=== PATIENT | female | born 1940 | race African-American/Black ===

== ENCOUNTER 2018-12-21 21:50 | Inpatient (IN) | payer MEDICARE ==
[~2018-12-21] VITALS: Ht 160 cm; Wt 39.9 kg
--- OUTSIDE RECORDS SUMMARY | 2018-12-21 21:53 | XMS REPORT | Clinical Summary ---
Author Author [facility] Organization [facility] Address Unknown Phone Unavailable Care Team Providers Care Professor Of Graphic Design Name Role Phone Elizabeth Gates MD PCP Allergies No Known Allergies Medications End Date Status Medication Sig Dispensed Refills Start Date Active glimepiride (AMARYL) 1 MG Take 1 mg by 0 tablet mouth daily before breakfast. Active metoprolol succinate XL Take 50 mg by 0 (TOPROL-XL) 50 mg 24 hr mouth daily. tablet Active pantoprazole (PROTONIX) Take 40 mg by 0 40 MG EC tablet mouth daily. Active metFORMIN (GLUCOPHAGE) Take 750 mg 0 1,000 mg tablet by mouth 2 (two) times a day with meals. Active atorvastatin (LIPITOR) 40 Take 40 mg by 0 MG tablet mouth daily. Active clonIDINE (CATAPRES) 0.1 Take 0.1 mg 0 MG tablet by mouth 2 (two) times a day. 03/09/2018 famotidine (PEPCID) 20 MG Take 1 tablet 60 tablet 0 tablet (20 mg total) 8 by mouth 2 (two) times a day for 30 days. Active Problems Not on file Encounters Care Team Description Date Type Specialty Stacia Jordan MD Pain of upper abdomen (Primary Dx); Esophagitis; Abnormal CT of the abdomen 02/07/2018 Emergency Emergency Medicine after 12/20/2017 Social History Date Tobacco Use Types Packs/Day Years Used Never Smoker Smokeless Tobacco: Never Used Drinks/Week oz/Week Comments Alcohol Use No Sex Assigned at Date Recorded Not on file Industry Job Start Date Occupation Not on file Not on file Not on file Travel End Travel History Travel Start No recent travel history available. Last Filed Vital Signs Reading Time Taken Comments Vital Sign 182/83 02/07/2018 7:57 PM CDT Blood Pressure 84 02/07/2018 7:57 PM CDT Pulse 36.4 C (97.6 F) 02/07/2018 7:57 PM CDT Temperature 18 02/07/2018 7:57 PM CDT Respiratory Rate 99% 02/07/2018 7:57 PM CDT Oxygen Saturation - - Inhaled Oxygen Concentration 44 kg (97 lb) 02/07/2018 3:20 PM CDT Weight 160 cm (5' 3") 02/07/2018 3:20 PM CDT Height 17.18 02/07/2018 3:20 PM CDT Body Mass Index Plan of Treatment Health Maintenance Due Date Last Done Comments COLONOSCOPY SCREENING 1992 SHINGLES VACCINES (#1) 1992 65+ PNEUMOCOCCAL VACCINE 06/27/2007 (1 of 2 - PCV13) INFLUENZA VACCINE 11/18/2018 Procedures Comments Procedure Name Priority Date/Time Associated Diagnosis POC GLUCOSE Routine 02/07/2018 7:[address] ABDOMEN PELVIS W STAT 02/07/2018 CONTRAST 7:06 PM CDT URINALYSIS STAT 02/07/2018 4:18 PM CDT XR ABDOMEN ACUTE INC STAT 02/07/2018 CHEST 4:14 PM CDT MANUAL DIFFERENTIAL STAT 02/07/2018 4:00 PM CDT ESTIMATED GFR STAT 02/07/2018 4:00 PM CDT AMYLASE LEVEL STAT 02/07/2018 4:00 PM CDT COMPREHENSIVE METABOLIC STAT 02/07/2018 PANEL 4:00 PM CDT CBC WITH PLATELET AND STAT 02/07/2018 DIFFERENTIAL 4:00 PM CDT ECG 12-LEAD Routine 02/07/2018 3:24 PM CDT after 12/20/2017 Results * POC glucose (02/07/2018 7:40 PM CDT) POC glucose 267 (H) 65 - 99 mg/dL DEPARTMENT Comment: OF PATHOLOGY Administered Insulin AND GENOMIC [facility] Notified MEDICINE, Meter ID: [id number] [place] Pressure Testing Technician: [facility] Specimen Performing Organization Address City/State/Zipcode Phone Number [place] [phone] [place] [address] PATHOLOGY AND GENOMIC MEDICINE, [place] [facility] * CT Abdomen Pelvis W Contrast (02/07/2018 7:06 PM CDT) Specimen Narrative Performed At EXAMINATION:CT ABDOMEN PELVIS W CONTRAST [facility] CLINICAL HISTORY:Weight lossunintendednon-localized abd pain TECHNIQUE: Multiple axial images of the abdomen and pelvis were obtained following intravenous administration of iodinated contrast. Sagittal and coronal computerized reformatted images were also obtained. Scan was performed using radiation dose reduction techniques. COMPARISON:None FINDINGS: There is retained or refluxed contrast in the distal esophagus. Esophagus is mildly thickened. No evidence of bowel obstruction or inflammation. Moderate stool is seen throughout the colon. No suspicious lesions in the solid organs. Punctate hypodensity in the right kidney is likely cyst but too small to characterize. No adrenal mass. Gallbladder is nondistended. No biliary dilatation. Pancreas is moderately atrophic. Endometrium appears diffusely abnormally thickened measuring up to 2.5 cm. No gross adnexal mass. No lymphadenopathy. Bladder is moderately distended. Old healed right rib fractures are seen. Diffuse vascular calcifications. Aorta is nonaneurysmal. IMPRESSION: No evidence of acute process. Abnormally thickened appearance of the endometrium should be correlated with pelvic ultrasound or MRI for possible neoplasm. [facility]-[id number] Procedure Note Interface, Radiology Results Incoming - 02/07/2018 7:22 PM CDT EXAMINATION: CT ABDOMEN PELVIS W CONTRAST CLINICAL HISTORY: Weight loss unintended non-localized abd pain TECHNIQUE: Multiple axial images of the abdomen and pelvis were obtained following intravenous administration of iodinated contrast. Sagittal and coronal computerized reformatted images were also obtained. Scan was performed using radiation dose reduction techniques. COMPARISON: None FINDINGS: There is retained or refluxed contrast in the distal esophagus. Esophagus is mildly thickened. No evidence of bowel obstruction or inflammation. Moderate stool is seen throughout the colon. No suspicious lesions in the solid organs. Punctate hypodensity in the right kidney is likely cyst but too small to characterize. No adrenal mass. Gallbladder is nondistended. No biliary dilatation. Pancreas is moderately atrophic. Endometrium appears diffusely abnormally thickened measuring up to 2.5 cm. No gross adnexal mass. No lymphadenopathy. Bladder is moderately distended. Old healed right rib fractures are seen. Diffuse vascular calcifications. Aorta is nonaneurysmal. IMPRESSION: No evidence of acute process. Abnormally thickened appearance of the endometrium should be correlated with pelvic ultrasound or MRI for possible neoplasm. [facility]-[id number] Performing Organization Address City/State/Zipcode Phone Number [facility] [address] [place] [address] * Urinalysis (02/07/2018 4:18 PM CDT) Glucose, UA 3+ (A) Negative [facility] Bilirubin, UA Negative Negative [facility] Ketones, UA Negative Negative [facility] Specific =<1.005 1.001 - 1.035 DEPARTMENT gravity, UA [facility] Blood, UA Trace (A) Negative [facility] pH, UA 6.0 5.0 - 8.5 [facility] Protein, UA Negative Negative [facility] Urobilinogen, <2.0 <2.0 DEPARTMENT UA [facility] Nitrite, UA Negative Negative [facility] Leukocyte Negative Negative DEPARTMENT esterase, UA [facility] Color, UA Yellow [facility] Appearance, UA Clear [facility] Specimen Urine Performing Organization Address City/[facility]/Zipcode Phone Number [facility] [address] [place] [address] [facility] * XR Abdomen Acute Inc Chest (02/07/2018 4:14 PM CDT) Specimen Narrative Performed At EXAMINATION:XR ABDOMEN ACUTE INC CHEST [facility] CLINICAL HISTORY:Abd painunspecified COMPARISON:Chest radiograph dated 06/03/2014 FINDINGS: Stool is seen throughout the colon, suggestive of mild constipation. There is no gastrointestinal distention to suggest obstruction. There is no free intraperitoneal air. There are no focal pathologic visceral calcifications. There is atherosclerotic calcification of the vasculature. There is demineralization and degenerative change of the visualized skeleton. There is no acute or suspicious osseous abnormality. The visualized lung bases appear grossly unremarkable. IMPRESSION: Moderate constipation without evidence of obstruction or free air. [facility]-[id number] Procedure Note Hm Interface, Radiology Results Incoming - 02/07/2018 4:35 PM CDT EXAMINATION: XR ABDOMEN ACUTE INC CHEST CLINICAL HISTORY: Abd pain unspecified COMPARISON: Chest radiograph dated 06/03/2014 FINDINGS: Stool is seen throughout the colon, suggestive of mild constipation. There is no gastrointestinal distention to suggest obstruction. There is no free intraperitoneal air. There are no focal pathologic visceral calcifications. There is atherosclerotic calcification of the vasculature. There is demineralization and degenerative change of the visualized skeleton. There is no acute or suspicious osseous abnormality. The visualized lung bases appear grossly unremarkable. IMPRESSION: Moderate constipation without evidence of obstruction or free air. [facility]-[id number] Performing Organization Address City/[facility]/Zipcode Phone Number [facility] [address] [place] [address] * Estimated GFR (02/07/2018 4:00 PM CDT) Estimated GFR 83 mL/min/1.73 m2 DEPARTMENT Comment: OF PATHOLOGY CatergoryUnitsInte AND GENOMIC rpretation MEDICINE, [address] >=90 Normal or high EMERGENCY CARE G2 CENTER 60-89Mildly decreased T0p58-67 Mildly to moderately decreased M3x39-77 Moderately to severely decreased G4 15-29Severely decreased G5 <15Kidney failure The eGFR was calculated using the Chronic Kidney Disease Epidemiology Collaboration (CKD-EPI) equation. Interpretation is based on recommendations of the National Kidney Foundation-Kidney Disease Outcomes Quality Initiative (NKF-KDOQI) published in 2014. Specimen Plasma specimen Performing Organization Address City/State/Zipcode Phone Number [facility] [address] [place] [address] PATHOLOGY AND GENOMIC MEDICINE, [facility] * Manual differential (02/07/2018 4:00 PM CDT) Manual PERFORMED [facility] DEPARTMENT differential OF PATHOLOGY AND GENOMIC MEDICINE Neutrophils 85.0 (H) 39.0 - 69.0 % [facility] DEPARTMENT OF PATHOLOGY AND GENOMIC MEDICINE Lymphocytes 12.0 (L) 25.0 - 45.0 % [facility] DEPARTMENT OF PATHOLOGY AND GENOMIC MEDICINE Monocytes 3.0 0.0 - 10.0 % [facility] DEPARTMENT OF PATHOLOGY AND GENOMIC MEDICINE Eosinophils 0.0 0.0 - 5.0 % [facility] DEPARTMENT OF PATHOLOGY AND GENOMIC MEDICINE Basophils 0.0 0.0 - 1.0 % [facility] DEPARTMENT OF PATHOLOGY AND GENOMIC MEDICINE Metamyelocytes 0 % [facility] DEPARTMENT OF PATHOLOGY AND GENOMIC MEDICINE Promyelocytes 0 % [facility] DEPARTMENT OF PATHOLOGY AND GENOMIC MEDICINE Platelet slide Increased (A) [facility] DEPARTMENT review OF PATHOLOGY AND GENOMIC MEDICINE Anisocytosis Moderate [facility] DEPARTMENT OF PATHOLOGY AND GENOMIC MEDICINE Polychromasia Moderate [facility] DEPARTMENT OF PATHOLOGY AND GENOMIC MEDICINE Schistocytes Occasional [facility] DEPARTMENT OF PATHOLOGY AND GENOMIC MEDICINE Spherocytes Occasional [facility] DEPARTMENT OF PATHOLOGY AND GENOMIC MEDICINE Ovalocytes Moderate [facility] DEPARTMENT OF PATHOLOGY AND GENOMIC MEDICINE Specimen Performing Organization Address City/State/Zipcode Phone Number [facility] DEPARTMENT [address] [address] PATHOLOGY AND GENOMIC MEDICINE * CBC with platelet and differential (02/07/2018 4:00 PM CDT) [facility] Signature WBC 12.90 (H) 4.50 - 11.00 k/uL [facility] RBC 3.83 (L) 4.20 - 5.50 m/uL [facility] HGB 10.7 (L) 12.0 - 16.0 g/dL [facility] HCT 31.3 (L) 37.0 - 47.0 % [facility] MCV 81.7 (L) 82.0 - 100.0 fL [facility] MCH 27.9 27.0 - 34.0 pg [facility] MCHC 34.2 31.0 - 37.0 g/dL [facility] RDW - SD 35.2 (L) 37.0 - 55.0 fL [facility] MPV 9.1 8.8 - 13.2 fL [facility] Platelet count 540 (H) 150 - 400 k/uL [facility] Neutrophils 85.0 (H) 39.0 - 69.0 % [facility] Lymphocytes 12.0 (L) 25.0 - 45.0 % [facility] Monocytes 3.0 0.0 - 10.0 % [facility] Eosinophils 0.0 0.0 - 5.0 % [facility] Basophils 0.0 0.0 - 1.0 % [facility] Specimen Blood Performing Organization Address City/[facility] [place] [address] [facility] * Amylase level (02/07/2018 4:00 PM CDT) Amylase 41 14 - 97 U/L [facility] Specimen Plasma specimen Performing Organization Address City/[facility] [place] [address] [facility] * Comprehensive metabolic panel (02/07/2018 4:00 PM CDT) Sodium 129 128 - 145 mEq/L [facility] Potassium 4.2 3.6 - 5.1 mEq/L [facility] CO2 30 18 - 33 mEq/L [facility] Chloride 93 (L) 98 - 108 mEq/L [facility] Glucose 359 (H) 73 - 118 mg/dL [facility] Calcium 9.0 8.0 - 10.3 mg/dL [facility] BUN 11 7 - 22 mg/dL [facility] Creatinine 0.8 0.5 - 0.9 mg/dL [facility] Alkaline 89 42 - 141 U/L DEPARTMENT phosphatase [facility] ALT 14 10 - 47 U/L [facility] AST 15 11 - 38 U/L [facility] Total bilirubin 0.8 0.2 - 1.6 mg/dL [facility] Albumin 3.9 3.3 - 5.5 g/dL [facility] Protein 7.4 6.4 - 8.1 g/dL [facility] Anion gap 6@ANIO (L) 7 - 15 mEq/L [facility] A/G ratio 1.1 0.7 - 3.8 [facility] Specimen Plasma specimen Performing Organization Address City/State/[facility] Cent[facility]ode Phone Number [address] [address] [facility] * ECG 12 lead (02/07/2018 3:24 PM CDT) [facility] Signature Ventricular 86 [facility] MUSE rate Atrial rate 86 [facility] MUSE ME interval 122 [facility] QRSD interval 132 [facility] QT interval 424 [facility] QTC interval 507 [facility] P axis 1 39 [facility] QRS axis 1 -6 [facility] T wave axis 177 [facility] MUSE EKG impression Normal sinus rhythm-Left [facility] MUSE bundle branch block-Abnormal ECG-In automated comparison with ECG of 03-JUN-2014 00:47,-T wave inversion now evident in Inferior leads- Specimen Performing Organization Address City/State/Zipcode Phone Number [facility] MUSE [address] [place] [address] after 12/20/2017 Insurance Type Payer Benefit Subscriber ID Effective Phone Address Plan / Dates Group Medicare MEDICARE MEDICARE xxxxxxxxxxx [id number] [place], PART A AND [place] Advance Directives For more information, please contact: [phone] Patient Rn Anesthetist Explanation Type Date Recorded Advance Directives, Living Will and Medical Power of Hydroelectric Station Operator
--- OUTSIDE RECORDS SUMMARY | 2018-12-21 21:53 | XMS REPORT | Summary of Care ---
Author Author [facility] Organization [facility] Address Unknown Phone Unavailable Encounter HQ Encntr_alias(FIN) [id number] Date(s): 06/03/18 - 07/02/18 [facility] [address] [place] [address]- [phone] Discharge Disposition: Home or Self Care Attending Physician: Bin Guevara DPM Vital Signs No data available for this section Problem List Condition Effective Dates Status Health Status Informant MRSA(Confirmed)1, 2 08/07/17 Active - MRSA - Wound/R Heel 2Problem added by Discern Expert. Allergies, Adverse Reactions, Alerts No data available for this section Medications No data available for this section Results No data available for this section Immunizations No data available for this section Procedures No data available for this section Social History No data available for this section Assessment and Plan No data available for this section
--- OUTSIDE RECORDS SUMMARY | 2018-12-21 21:53 | XMS REPORT | Summary of Care ---
Author Author [facility] Organization [facility] Address Unknown Phone Unavailable Encounter HQ Encntr_alias(FIN) [id number] Date(s): 10/06/18 - 11/04/18 [facility] [address] [place] [address]- Discharge Disposition: Home or Self Care Attending Physician: Bin Guevara DPM Vital Signs No data available for this section Problem List Condition Effective Dates Status Health Status Informant MRSA(Confirmed)1, 2 08/07/17 Active - MRSA - Wound/R Heel 2Problem added by Discern Expert. Allergies, Adverse Reactions, Alerts No data available for this section Medications No data available for this section Results Microbiology Reports TEST: Culture: Wound/Abscess w/Gram Stain STATUS: Auth (Verified) BODY SITE: Right Foot SOURCE: Wound, Non Surgical COLLECTED DATE/TIME: 10/06/18 1:30 PM FINAL REPORT Moderate Escherichia coli Many Gram Pos Rods Suggestive of Diphtheroids STAIN REPORT No Wbc'S Or Organisms Seen ORGANISM:Escherichia coli Immunizations No data available for this section Procedures No data available for this section Social History No data available for this section Assessment and Plan No data available for this section
--- OUTSIDE RECORDS SUMMARY | 2018-12-21 21:53 | XMS REPORT | Continuity of Care Document ---
Author Author [facility] Address Unknown Phone Unavailable Care Team Providers Care Netsuite Developer Name Role Phone [employer] Unavailable Unavailable Problems Problem Status Onset Date Classification Date Reported Comments Source WOUND Active 11/12/2018 [facility] Type 2 diabetes mellitus with diabetic polyneuropathy 03/31/2018 10/13/2018 [facility] Methicillin resistant Staphylococcus aureus (organism) Active 08/07/2017 Problem 11/06/2018 08/07/2017 - MRSA - Wound/R Heel Problem added by Discern Expert. [facility] Peripheral vascular disease, unspecified 10/13/2018 [facility] Non-pressure chronic ulcer of right heel and midfoot with fat layer exposed 10/13/2018 [facility] residential (current) use of oral hypoglycemic drugs 10/13/2018 [facility] UNSPECIFIED OPEN WOUND, RIGHT FOOT, SUBS Active [facility] PERIPHERAL VASCULAR DISEASE, UNSPECIFIED Active [facility] TYPE 2 DIABETES MELLITUS WITH DIABETIC P Active [facility] MUSCLE WEAKNESS (GENERALIZED) Active [facility] TYPE 2 DIABETES MELLITUS WITH FOOT ULCER Active [facility] NON-PRS CHR ULCER OF RIGHT HEEL AND MIDF Active [facility] NON-PRS CHR ULCER OF RIGHT HEEL AND MIDF Active [facility] NON-PRS CHR ULCER OF RIGHT HEEL AND MIDF Active [facility] Medications No Data Provided for This Section Allergies, Adverse Reactions, Alerts No Known Medication Allergies Immunizations No Data Provided for This Section Results Order Name Results Value Reference Range Date Interpretation Comments Source AMIKACIN:SUSC:PT:ISOLATE:ORDQN:SHWETA Gram Stain Report No Wbc'S Or Organisms Seen 10/06/2018 [facility] AMIKACIN:SUSC:PT:ISOLATE:ORDQN:SHWETA Culture: Wound/Abscess w/Gram Stain Moderate Escherichia coli Many Gram Pos Rods Suggestive of Diphtheroids 10/06/2018 [facility] AMIKACIN:SUSC:PT:ISOLATE:ORDQN:SHWETA Escherichia coli Escherichia coli 10/06/2018 [facility] TIGECYCLINE:SUSC:PT:ISOLATE:ORDQN:SHWETA Gram Stain Report No WBC's Seen Rare Gram Positive Cocci In Pairs 07/21/2018 [facility] TIGECYCLINE:SUSC:PT:ISOLATE:ORDQN:SHWETA Culture: Wound/Abscess w/Gram Stain Many Escherichia coli Many Gram Pos Rods Suggestive of Diphtheroids 07/21/2018 [facility] TIGECYCLINE:SUSC:PT:ISOLATE:ORDQN:SHWETA Escherichia coli Escherichia coli 07/21/2018 [facility] Gram Stain Report No Wbc'S Or Organisms Seen 02/24/2018 [facility] Culture: Wound/Abscess w/Gram Stain No Growth 02/24/2018 [facility] Pathology Reports No Data Provided for This Section Diagnostic Reports No Data Provided for This Section Consultation Notes No Data Provided for This Section Discharge Summaries No Data Provided for This Section History and Physicals No Data Provided for This Section Vital Signs No Data Provided for This Section Encounters Location Location Details Encounter Type Encounter Number Reason For Visit Attending Provider ADM Date DC Date Status Source [facility] [id number] Lisbeth Yorkson 08/07/2017 09/06/2017 [facility] [id number] Bin Blank III 02/24/2018 03/26/2018 [facility] [id number] Bin Blank III 06/03/2018 07/03/2018 [facility] [id number] Bin Blank III 07/21/2018 08/20/2018 [facility] [id number] Bin Blank III 09/01/2018 10/01/2018 [facility] [id number] [facility] Blank III 10/06/2018 11/05/2018 [facility] Procedures No Data Provided for This Section Assessment and Plan No Data Provided for This Section Plan of Care No Data Provided for This Section Social History Social History Date Source No data available for this section 11/05/2018 [facility] Family History No Data Provided for This Section Advance Directives No Data Provided for This Section Functional Status No Data Provided for This Section
--- OUTSIDE RECORDS SUMMARY | 2018-12-21 21:53 | XMS REPORT ---
Author Author [facility] Address Unknown Phone Unavailable Care Team Providers Care Underwater Roboticist Name Role Phone Unavailable Unavailable Problems This patient has no known problems. Allergies, Adverse Reactions, Alerts This patient has no known allergies or adverse reactions. Medications This patient has no known medications. Encounters Start Date/Time End Date/Time Encounter Type Admission Type Attending [facility] Facility Care Department Encounter ID 2018-12-08 11:00:00 2018-12-08 11:00:00 Outpatient MHNE MHNE [id number] 2018-10-06 13:08:00 2018-10-06 13:08:00 Outpatient MHNE MHNE [id number] 2018-09-01 13:41:00 2018-09-01 13:41:00 Outpatient MHNE MHNE [id number] 2018-07-21 14:09:00 2018-07-21 14:09:00 Outpatient MHNE MHNE [id number]
--- OUTSIDE RECORDS SUMMARY | 2018-12-21 21:53 | XMS REPORT | Summary of Care ---
Author Author [facility] Organization [facility] Address Unknown Phone Unavailable Encounter HQ Encntr_alias(FIN) [id number] Date(s): 08/07/17 - 09/05/17 [facility] [address] [place] [address]- Discharge Disposition: Home or Self Care Attending Physician: Lisbeth Brandon MD Vital Signs No data available for this [...]
--- OUTSIDE RECORDS SUMMARY | 2018-12-21 21:53 | XMS REPORT | Summary of Care ---
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 Allergies, Adverse Reactions, Alerts No data available for this section Medications No data available for this section Results Microbiology Reports TEST: Culture: Wound/Abscess w/Gram Stain STATUS: Auth (Verified) BODY SITE: Right Heel SOURCE: Wound, Non Surgical COLLECTED DATE/TIME: 02/24/18 2:25 PM FINAL REPORT No Growth STAIN REPORT No Wbc'S Or Organisms Seen Immunizations No data available for this section Procedures No data available for this section Social History No data available for this section Assessment and Plan No data available for this section
--- OUTSIDE RECORDS SUMMARY | 2018-12-21 21:53 | XMS REPORT | Summary of Care ---
Author Author [facility] Organization [facility] Address Unknown Phone Unavailable Encounter HQ Encntr_alias(FIN) [id number] Date(s): 07/21/18 - 08/19/18 [facility] [address] [place] [address]- [phone] Discharge Disposition: Home or Self Care Attending [...] Heel SOURCE: Wound, Non Surgical COLLECTED DATE/TIME: 07/21/18 3:39 PM FINAL REPORT Many Escherichia coli Many Gram Pos Rods Suggestive of Diphtheroids STAIN REPORT No WBC's Seen Rare Gram Positive Cocci In Pairs ORGANISM:Escherichia coli Immunizations No data available for this section Procedures No data available for this section Social History No data available for this section Assessment and Plan No data available for this section
--- OUTSIDE RECORDS SUMMARY | 2018-12-21 21:53 | XMS REPORT | Summary of Care ---
Author Author [facility] Organization [facility] Address Unknown Phone Unavailable Encounter HQ Encntr_alias(FIN) [id number] Date(s): 09/01/18 - 09/30/18 [facility] [address] [place] [address]- [phone] Discharge Disposition: Home or Self Care Attending [...]
[2018-12-21] MEDS ORDERED: ONDANSETRON HCL INJ 2MG/ML 2ML 2 MG/ML VIAL IV STA (22:14)
[2018-12-21] MEDS ORDERED: SODIUM CHLORIDE 0.9% 1000ML 1,000 ML IV SCH (22:15)
[2018-12-21] MEDS ORDERED: SODIUM CHLORIDE 0.9% 500ML 500 ML IV ONE (23:15)
[2018-12-21] MEDS: CEFTRIAXONE SOD 1 GM/NS 50 ML 50 ML IV SCH (23:17)
[2018-12-21] MEDS ORDERED: CEFTRIAXONE SOD 1 GM VIAL ONE (23:18)
--- NOTE | 2018-12-21 23:32 | Diagnostic Imaging Report ---
EXAMINATION: CXR 2 VIEW - HOPD INDICATION: Fever, abdominal pain COMPARISON: None FINDINGS: PA and lateral views TUBES and LINES: None. LUNGS: Lungs are well inflated. There is no evidence of pneumonia or pulmonary edema. PLEURA: No pleural effusion or pneumothorax. HEART AND MEDIASTINUM: The heart is normal in size. Mild aortic tortuosity. BONES AND SOFT TISSUES: No focal osseous lesions. Soft tissues are unremarkable. UPPER ABDOMEN: No free air under the diaphragm. IMPRESSION: No acute thoracic abnormality. Signed by: Dr. Ricco Walter MD on 12/21/2018 11:28 PM
--- NOTE | 2018-12-21 23:46 | Diagnostic Imaging Report ---
CT Abdomen And Pelvis Without IV Contrast INDICATION: Nausea, vomiting TECHNIQUE: 5 mm collimation axial images obtained from the diaphragm to the level of the pubic symphysis without nonionic intravenous contrast. RADIATION DOSE: Total DLP: 176.57 mGy*cm Estimated effective dose: (DLP x 0.015 x size factor) mSv CTDIvol has been reviewed. It is below the limits set by the Radiation Protocol Committee (RPC). Dose reduction techniques used: Automated exposure control, adjustment of the mAs and/or kVp according to patient size, standardized low-dose protocol, and/or iterative reconstruction technique. COMPARISON: None. ABDOMEN FINDINGS: Lung Bases: Clear. Visualized portions of the mediastinum are normal in size. The cardiac diane are visible suggestive of anemia. Liver: Normal in attenuation without soft tissue mass. Punctate calcification in the right lobe. Gallbladder: Present and appears normal. No ductal dilatation. Pancreas: Normal attenuation without mass. Spleen: Normal in attenuation and size without mass. Adrenal Glands: Bilateral adrenal hyperplasia. No discrete mass. Kidneys: Right Kidney: Diffuse edema and mild renal pelvis distention. The calyces are not dilated. Mild perinephric inflammation. No cortical mass or intrarenal calculus. Left Kidney: No renal calculus. No cortical mass or hydronephrosis. Lymph Nodes: No lymphadenopathy. Aorta: Normal in diameter. There are diffuse calcifications. PELVIS FINDINGS: Bowel: Stomach: Normal. Small Bowel: Normal in caliber with normal wall thickness. Large Bowel: Moderate to large amount of inspissated stool throughout the colon. The stool ball in the rectum. Moderate burden of diverticulosis. No associated inflammation Appendix: Not visualized. Bladder: Mild mural thickening. Ureters: No calculus or dilatation. Uterus: Present and normal in morphology. There are calcific age of the parametrial vessels. No adnexal mass Lymph Nodes: No enlarged abdominal or retroperitoneal lymph nodes. Peritoneum/retroperitoneum: No free fluid or fluid collection. Soft tissues: Focal subcutaneous inflammation in the right abdominal wall may be from injection. Bones: Healed right rib fractures. IMPRESSION: 1. Right renal edema and perinephric inflammation suggestive of pyelonephritis. No renal or ureteral calculi. 2. Mild diffuse bladder wall thickening may be the result of chronic cystitis. 3. Moderate to large amount of inspissated stool suggestive of constipation. No bowel obstruction. 4. Suspected anemia. Signed by: Dr. Ricco Walter MD on 12/21/2018 11:43 PM
[2018-12-22] VITALS (17 sets, daily range): BP systolic 120–174; BP diastolic 39–99
[2018-12-22] MEDS ORDERED: SODIUM CHLORIDE 0.9% 500ML 500 ML ONE (00:07)
[2018-12-22] MEDS ORDERED: SODIUM CHLORIDE 0.9% 1000ML 1,000 ML IV SCH ×2 (00:26→00:45)
[2018-12-22] MEDS ORDERED: ONDANSETRON HCL INJ 2MG/ML 2ML 2 MG/ML VIAL IV PRN (00:30)
--- OUTSIDE RECORDS SUMMARY | 2018-12-22 00:40 | XMS REPORT | Continuity of Care Document ---
Author Author [facility] Address Unknown Phone Unavailable Care Team Providers Care Helicopter Specialist Name Role Phone [email or web address] Unavailable Unavailable Problems Problem Status Onset Date Classification Date Reported Comments Source WOUND Active 11/12/2018 [facility] Type 2 diabetes mellitus with diabetic polyneuropathy 03/31/2018 10/13/2018 [facility] Methicillin resistant Staphylococcus aureus (organism) Active 08/07/2017 Problem 11/06/2018 08/07/2017 - MRSA - Wound/R Heel Problem added by Discern Expert. [facility] Peripheral vascular disease, unspecified 10/13/2018 [facility] Non-pressure chronic ulcer of right heel and midfoot with fat layer exposed 10/13/2018 [facility] FDC (current) use of oral hypoglycemic drugs 10/13/2018 [facility] UNSPECIFIED OPEN WOUND, RIGHT FOOT, SUBS Active [facility] PERIPHERAL VASCULAR DISEASE, UNSPECIFIED Active [facility] TYPE 2 DIABETES MELLITUS WITH DIABETIC P Active [facility] MUSCLE WEAKNESS (GENERALIZED) Active [facility] TYPE 2 DIABETES MELLITUS WITH FOOT ULCER Active [facility] NON-PRS CHR ULCER OF RIGHT HEEL AND MIDF Active [facility] NON-PRS CHR ULCER OF RIGHT HEEL AND MIDF Active [facility] NON-PRS CHR ULCER OF RIGHT HEEL AND MIDF Active [facility] Medications No Data Provided for This Section Allergies, Adverse Reactions, Alerts No Known Medication Allergies Immunizations No Data Provided for This Section Results Order Name Results Value Reference Range Date Interpretation Comments Source AMIKACIN:SUSC:PT:ISOLATE:ORDQN:SHWETA Gram Stain Report No Wbc'S Or Organisms Seen 10/06/2018 [facility] AMIKACIN:SUSC:PT:ISOLATE:ORDQN:SHWETA Culture: Wound/Abscess w/Gram Stain Moderate Escherichia coli Many Gram Pos Rods Suggestive of Diphtheroids 10/06/2018 [facility] AMIKACIN:SUSC:PT:ISOLATE:ORDQN:SHWETA Escherichia coli Escherichia coli 10/06/2018 [facility] TIGECYCLINE:SUSC:PT:ISOLATE:ORDQN:SHWETA Gram Stain Report No WBC's Seen Rare Gram Positive Cocci In Pairs 07/21/2018 [facility] TIGECYCLINE:SUSC:PT:ISOLATE:ORDQN:SHWETA Culture: Wound/Abscess w/Gram Stain Many Escherichia coli Many Gram Pos Rods Suggestive of Diphtheroids 07/21/2018 [facility] TIGECYCLINE:SUSC:PT:ISOLATE:ORDQN:SHWETA Escherichia coli Escherichia coli 07/21/2018 [facility] Gram Stain Report No Wbc'S Or Organisms Seen 02/24/2018 [facility] Culture: Wound/Abscess w/Gram Stain No Growth 02/24/2018 [facility] Pathology Reports No Data Provided for [...] Provider ADM Date DC Date Status Source [facility] [id number] Lisbeth Yorkson 08/07/2017 09/06/2017 [facility] [id number] Bin Blank III 02/24/2018 03/26/2018 [facility] [id number] Bin Blank III 06/03/2018 07/03/2018 [facility] [id number] Bin Blank III 07/21/2018 08/20/2018 [facility] [id number] Bin Blank III 09/01/2018 10/01/2018 [facility] [id number] [facility] Blank III 10/06/2018 11/05/2018 [facility] Procedures No Data Provided for This Section Assessment and Plan No Data Provided for This Section Plan of Care No Data Provided for This Section Social History Social History Date Source No data available for this section 11/05/2018 [facility] Family History No Data Provided for This Section Advance Directives No Data Provided for This Section Functional Status No Data Provided for This Section
--- OUTSIDE RECORDS SUMMARY | 2018-12-22 00:40 | XMS REPORT | Clinical Summary ---
Author Author [facility] Address Unknown Phone Unavailable Care Team Providers Care Lithographic Stripper Name Role Phone Elizabeth Gates MD PCP [...] the abdomen 02/07/2018 Emergency Emergency Medicine after 12/21/2017 Social History Date Tobacco Use Types Packs/Day [...] 12-LEAD Routine 02/07/2018 3:24 PM CDT after 12/21/2017 Results * POC glucose (02/07/2018 7:40 PM CDT) POC glucose 267 (H) 65 - 99 mg/dL DEPARTMENT Comment: OF PATHOLOGY Administered Insulin AND GENOMIC [facility] Notified MEDICINE, Meter ID: [id number] [facility] Manager Information: [facility] Specimen Performing Organization Address City/State/Zipcode Phone Number [place] [phone] [place] [address] PATHOLOGY AND GENOMIC MEDICINE, [facility] * CT Abdomen Pelvis W Contrast [...] pelvic ultrasound or MRI for possible neoplasm. [facility]-[id number] Procedure Note Interface, Radiology Results Incoming - [...] pelvic ultrasound or MRI for possible neoplasm. [facility]-[id number] Performing Organization Address City/State/Zipcode Phone Number [facility] [address] [place] [address] * Urinalysis (02/07/2018 4:18 PM CDT) Glucose, UA 3+ (A) Negative [facility] Bilirubin, UA Negative Negative [facility] Ketones, UA Negative Negative [facility] Specific =<1.005 1.001 - 1.035 DEPARTMENT gravity, UA [facility] Blood, UA Trace (A) Negative [facility] pH, UA 6.0 5.0 - 8.5 [facility] Protein, UA Negative Negative [facility] Urobilinogen, <2.0 <2.0 DEPARTMENT UA [facility] Nitrite, UA Negative Negative [facility] Leukocyte Negative Negative DEPARTMENT esterase, UA [facility] Color, UA Yellow [facility] Appearance, UA Clear [facility] Specimen Urine Performing Organization Address City/[facility]/Zipcode Phone Number [facility] [address] [place] [address] [facility] * XR Abdomen Acute Inc Chest (02/07/2018 [...] without evidence of obstruction or free air. [facility]-[id number] Procedure Note Hm Interface, Radiology Results Incoming [...] without evidence of obstruction or free air. [facility]-[id number] Performing Organization Address City/[facility]/Zipcode Phone Number [facility] [address] [place] [address] * Estimated GFR (02/07/2018 4:00 PM CDT) Estimated GFR 83 mL/min/1.73 m2 DEPARTMENT Comment: OF PATHOLOGY CatergoryUnitsInte AND GENOMIC rpretation MEDICINE, [address] >=90 Normal or high EMERGENCY CARE G2 CENTER 60-89Mildly decreased [id number] Mildly to moderately decreased [id number] Moderately to severely decreased G4 15-29Severely decreased G5 <15Kidney failure The eGFR was calculated using the Chronic Kidney Disease Epidemiology Collaboration (CKD-EPI) equation. Interpretation is based on recommendations of the National Kidney Foundation-Kidney Disease Outcomes Quality Initiative (NKF-KDOQI) published in 2014. Specimen Plasma specimen Performing Organization Address City/State/Zipcode Phone Number [facility] [address] [place] [address] PATHOLOGY AND GENOMIC MEDICINE, [facility] * Manual differential (02/07/2018 4:00 PM CDT) Manual PERFORMED [facility] DEPARTMENT differential OF PATHOLOGY AND GENOMIC MEDICINE Neutrophils 85.0 (H) 39.0 - 69.0 % [facility] DEPARTMENT OF PATHOLOGY AND GENOMIC MEDICINE Lymphocytes 12.0 (L) 25.0 - 45.0 % [facility] DEPARTMENT OF PATHOLOGY AND GENOMIC MEDICINE Monocytes 3.0 0.0 - 10.0 % [facility] DEPARTMENT OF PATHOLOGY AND GENOMIC MEDICINE Eosinophils 0.0 0.0 - 5.0 % [facility] DEPARTMENT OF PATHOLOGY AND GENOMIC MEDICINE Basophils 0.0 0.0 - 1.0 % [facility] DEPARTMENT OF PATHOLOGY AND GENOMIC MEDICINE Metamyelocytes 0 % [facility] DEPARTMENT OF PATHOLOGY AND GENOMIC MEDICINE Promyelocytes 0 % [facility] DEPARTMENT OF PATHOLOGY AND GENOMIC MEDICINE Platelet slide Increased (A) [facility] DEPARTMENT review OF PATHOLOGY AND GENOMIC MEDICINE Anisocytosis Moderate [facility] DEPARTMENT OF PATHOLOGY AND GENOMIC MEDICINE Polychromasia Moderate [facility] DEPARTMENT OF PATHOLOGY AND GENOMIC MEDICINE Schistocytes Occasional [facility] DEPARTMENT OF PATHOLOGY AND GENOMIC MEDICINE Spherocytes Occasional [facility] DEPARTMENT OF PATHOLOGY AND GENOMIC MEDICINE Ovalocytes Moderate [facility] DEPARTMENT OF PATHOLOGY AND GENOMIC MEDICINE Specimen Performing Organization Address City/State/Zipcode Phone Number [facility] DEPARTMENT [address] [address] PATHOLOGY AND GENOMIC MEDICINE * CBC with platelet and differential (02/07/2018 4:00 PM CDT) [facility] Signature WBC 12.90 (H) 4.50 - 11.00 k/uL [facility] RBC 3.83 (L) 4.20 - 5.50 m/uL [facility] HGB 10.7 (L) 12.0 - 16.0 g/dL [facility] HCT 31.3 (L) 37.0 - 47.0 % [facility] MCV 81.7 (L) 82.0 - 100.0 fL [facility] MCH 27.9 27.0 - 34.0 pg [facility] MCHC 34.2 31.0 - 37.0 g/dL [facility] RDW - SD 35.2 (L) 37.0 - 55.0 fL [facility] MPV 9.1 8.8 - 13.2 fL [facility] Platelet count 540 (H) 150 - 400 k/uL [facility] Neutrophils 85.0 (H) 39.0 - 69.0 % [facility] Lymphocytes 12.0 (L) 25.0 - 45.0 % [facility] Monocytes 3.0 0.0 - 10.0 % [facility] Eosinophils 0.0 0.0 - 5.0 % [facility] Basophils 0.0 0.0 - 1.0 % [facility] Specimen Blood Performing Organization Address City/[facility] [place] [address] [facility] * Amylase level (02/07/2018 4:00 PM CDT) Amylase 41 14 - 97 U/L [facility] Specimen Plasma specimen Performing Organization Address City/[facility] [place] [address] [facility] * Comprehensive metabolic panel (02/07/2018 4:00 PM CDT) Sodium 129 128 - 145 mEq/L [facility] Potassium 4.2 3.6 - 5.1 mEq/L [facility] CO2 30 18 - 33 mEq/L [facility] Chloride 93 (L) 98 - 108 mEq/L [facility] Glucose 359 (H) 73 - 118 mg/dL [facility] Calcium 9.0 8.0 - 10.3 mg/dL [facility] BUN 11 7 - 22 mg/dL [facility] Creatinine 0.8 0.5 - 0.9 mg/dL [facility] Alkaline 89 42 - 141 U/L DEPARTMENT phosphatase [facility] ALT 14 10 - 47 U/L [facility] AST 15 11 - 38 U/L [facility] Total bilirubin 0.8 0.2 - 1.6 mg/dL [facility] Albumin 3.9 3.3 - 5.5 g/dL [facility] Protein 7.4 6.4 - 8.1 g/dL [facility] Anion gap 6@ANIO (L) 7 - 15 mEq/L [facility] A/G ratio 1.1 0.7 - 3.8 [facility] Specimen Plasma specimen Performing Organization Address City/State/[facility] Mexicocode Phone Number [address] [address] [facility] * ECG 12 lead (02/07/2018 3:24 PM CDT) [facility] Signature Ventricular 86 [facility] MUSE rate Atrial rate 86 [facility] MUSE TN interval 122 [facility] MUSE QRSD interval 132 [facility] MUSE QT interval 424 [facility] MUSE QTC interval 507 [facility] M[facility] P axis 1 39 [facility] MUSE QRS axis 1 -6 [facility] MUSE T wave axis 177 [facility] MUSE EKG impression Normal sinus rhythm-Left [facility] MUSE bundle branch block-Abnormal ECG-In automated comparison with ECG of 03-JUN-2014 00:47,-T wave inversion now evident in Inferior leads- Specimen Performing Organization Address City/State/Zipcode Phone Number [facility] MUSE [address] [place] [address] after 12/21/2017 Insurance Type Payer Benefit Subscriber ID Effective Phone Address Plan / Dates Group Medicare MEDICARE MEDICARE xxxxxxxxxxx [id number] [place], PART A AND [place] Advance Directives For more information, please contact: [phone] Patient Digital Production Artist Explanation Type Date Recorded Advance Directives, Living Will and Medical Power of Knuckle Bender
[2018-12-22] MEDS ORDERED: ASPIR 8181 MG (00:42)
[2018-12-22] MEDS ORDERED: GERITOL COMPLE1 EACH (00:42)
[2018-12-22] MEDS ORDERED: METOPROLOL SUCC50 MG PO (00:42)
[2018-12-22] MEDS ORDERED: FAMOTIDINE20 MG PO (00:42)
[2018-12-22] MEDS ORDERED: CALCIUM CARBON500 MG PO (00:42)
[2018-12-22] MEDS ORDERED: ATORVASTATIN CA20 MG PO (00:42)
[2018-12-22] MEDS ORDERED: METFORMIN HCL500 M2 PO (00:42)
[2018-12-22] MEDS ORDERED: PANTOPRAZOLE SO40 MG PO (00:42)
[2018-12-22] MEDS ORDERED: ALBUTEROL0.63 MG/3 (03:42)
[2018-12-22 05:20] LABS: BASOPHILS # (AUTO) 0.1 (0.0-0.1); BASOPHILS % 0.2 % (0.0-1.0); HEMATOCRIT 25.2 % (34.2-44.1); HEMOGLOBIN 8.4 g/dL (12.0-16.0); LYMPHOCYTES # (AUTO) 1.4 (1.0-3.2); LYMPHOCYTES % 5.9 % (18.0-39.1); MEAN CORPUSCULAR HEMOGLOBIN 29.1 pg (28-32); MEAN CORPUSCULAR HGB CONC 33.3 g/dL (31-35); MEAN CORPUSCULAR VOLUME 87.2 fL (81-99); MONOCYTES # (AUTO) 1.5 (0.2-0.8); MONOCYTES % 6.1 % (4.4-11.3); NEUTROPHILS # (AUTO) 20.4 (2.1-6.9); NEUTROPHILS % 86.1 % (38.7-80.0); PLATELET COUNT 383 x10e3/uL (140-360); RED BLOOD COUNT 2.89 x10e6/uL (3.6-5.1); RED CELL DISTRIBUTION WIDTH 13.4 % (11.7-14.4)
[2018-12-22 05:36] LABS: ANION GAP 13.6 mmol/L (8-16); CALCIUM 8.9 mg/dL (8.4-10.2); CREATININE, SERUM 1.41 mg/dL (0.57-1.11); POTASSIUM 4.6 mmol/L (3.5-5.1)
[2018-12-22] MEDS: ASPIRIN 81 MG CHEW TAB PO SCH (08:04)
[2018-12-22] MEDS: PANTOPRAZOLE SOD 40 MG TABEC PO SCH (08:14)
[2018-12-22] MEDS: FAMOTIDINE 20 MG TAB PO SCH (08:14)
[2018-12-22] MEDS: METOPROLOL SUCCINATE 50 MG TAB XL PO SCH (08:14)
[2018-12-22] MEDS: OYST-CAL-D 500MG TABLET PO SCH ×2 (08:14→17:07)
[2018-12-22] MEDS ORDERED: METFORMIN HCL 500 MG TAB CR PO SCH (09:00)
--- NOTE | 2018-12-22 09:09 | NUR ---
CALLED NEW CONSULT FOR AT THIS TIME.
--- NOTE | 2018-12-22 09:19 | NUR ---
NEW CONSULT FOR DR.KAUL PALACIOS.
[2018-12-22] MEDS ORDERED: METFORMIN HCL 750 MG TAB ER PO SCH (10:00)
[2018-12-22] MEDS ORDERED: DEXTROSE 50% SYRINGE 50 ML IV PRN (12:15)
--- NOTE | 2018-12-22 14:00 | NUR ---
ROUNDED WITH RECEIVED VERBAL ORDERS FOR INSULIN WITH MEALS AND SLIDING SCALE AND AT BEDTIME , REPEATED BACK TO MD NO FURTHER ORDERS RECEIVED WILL CONTINUE TO MONITOR
[2018-12-22 14:45] LABS: FREE T4 (FREE THYROXINE) 1.08 ng/dL (0.8-1.8); THYROID STIMULATING HORMONE 0.526 uIU/mL (0.350-4.940)
--- NOTE | 2018-12-22 15:14 | History and Physical ---
CHIEF COMPLAINT: Abdominal pain. HISTORY OF PRESENT ILLNESS: Ms. Hutton is a 78-year-old female. She presented from the outside emergency room with complaints of abdominal pain. She was found to have perinephric stranding on the CT abdomen and pelvis. She had lactic acid was marginally high, so she was admitted for sepsis due to possible pyelonephritis. She denies any complaints of chest pain, nausea, or vomiting. She is feeling better and tolerating diet. Blood pressures remain stable. When she came in, her white count was 23,000 and lactic acid was 21.5, creatinine of 1.41, unknown baseline. She has never been admitted to this hospital. She is on antihypertensive medication and metformin as an outpatient. Denies any nausea or vomiting. REVIEW OF SYSTEMS: GENERAL: Denies any fever or chills. HEAD: Denies any head trauma. ENT: Denies any earaches. CVS: Denies any chest pain. RESPIRATORY: Denies any shortness of breath. GI: Denies any nausea or vomiting. The rest of the review of systems are negative except as in HPI. PAST MEDICAL HISTORY: Hypertension and diabetes. PAST SURGICAL HISTORY: Toe surgery. FAMILY AND SOCIAL HISTORY: She does not smoke. Does not drink. Lives with her daughter. PHYSICAL EXAMINATION: VITAL SIGNS: Temperature 98.9, pulse of 87, blood pressure 173/68, respiratory rate is 18, and O2 saturation 95% on room air. HEENT: Head is atraumatic and normocephalic. NECK: Supple. CHEST: Clear to auscultation bilaterally. No wheezing. HEART: S1 and S2 audible. ABDOMEN: Soft. EXTREMITIES: No pedal edema. LABORATORY DATA: White count of 23,000, hemoglobin 8.4, and platelets 383. Chemistry; creatinine 1.41, sodium 133, and potassium 4.6. Lactic acid 21.5. At freestanding ER, her creatinine was 1.5 and is down to 1.4. White cell count was 16, lactic acid was 21.5 over there. ASSESSMENT: Ms. Hutton is a 78-year-old female. She presented to the emergency room with abdominal pain. CT of the abdomen and pelvis done, which is showing evidence of renal edema and perinephric inflammation, suggestive of pyelonephritis. She had sepsis due to pyelonephritis, which was present on admission. She has history of hypertension and diabetes. PLAN: I will continue the patient on IV Rocephin that has been ordered from the emergency room. Resume the home medications. Recheck lactate. Consult Infectious Disease moving consultant for further recommendation. Follow the blood cultures and urine cultures. MD KEIRA Shane/PROSPER /[id number]
[2018-12-22] MEDS: SODIUM CHLORIDE 0.45% 1,000 ML IV SCH (15:21)
--- NOTE | 2018-12-22 16:05 | Consultation ---
DATE OF CONSULTATION: HISTORY OF PRESENT ILLNESS: Ms. Hutton, who is a very pleasant 78-year-old female. The patient apparently was at [employer], said to have some nausea and vomiting, went home, that was okay for a day, but the next day she became worse with nausea and vomiting. Her daughter convinced her to come to the hospital. In the emergency room, she was evaluated. She was hypotensive, so she is being admitted. She is telling me since she came here, she is feeling much better. There is no complaints at the present time, but according to daughter, she did have vomiting, nausea, and abdominal pain. She does have history of diverticular disease according to her daughter. Also, the daughter noted that the urine smells really bad and she thought it could be also urinary tract infection, so the patient was admitted. She was started on Protonix, Toprol, Pepcid, calcium, Os-Nick, aspirin, and ceftriaxone. LABORATORY DATA: On admission; white count 23.7, hemoglobin 8.4. Her sodium 133, potassium 4.6, creatinine 1.4. Her cultures are still pending. IMAGING: She had abdomen CT scan, which showed right renal edema suggestive of pyelonephritis, diffuse bladder wall thickening suggestive of cystitis. PHYSICAL EXAMINATION: GENERAL: She is currently alert, oriented, does not seem to be in acute distress. VITAL SIGNS: Stable. When she first came she had temperature of 100.3. Currently, there is no fever. HEENT: Normocephalic, Not icteric. NECK: Supple. No JVD. No lymphadenopathy. No thyromegaly. CHEST: Clear bilateral. HEART: S1, S2. No S3, S4, or murmur. ABDOMEN: Soft. Bowel sounds present. No tenderness. IMPRESSION: Sepsis, pyelonephritis, currently on Rocephin, seems to be better, continue with the same. Await blood cultures, urine cultures. Dehydration. Agree with IV fluid. Acute kidney injury, probably chronic kidney disease. Diabetes mellitus. Discussed with the family. Discussed with medical team. We will follow with you. MD ZUHAIR Borjas/PROSPER /[id number]
[2018-12-22] MEDS: INSULIN LISPRO 100 UNIT/1 ML 3ML VIAL SQ SCH ×4 (16:30→20:26)
[2018-12-22] MEDS ORDERED: INSULIN REGULAR, HUMAN 100 UNIT/1 ML 3ML VIAL SQ SCH (16:30)
--- NOTE | 2018-12-22 17:45 | Consultation ---
DATE OF CONSULTATION: 12/22/2018 Endocrine consultation This is a patient Dr. Ji. Thank you very much for referring this patient. HISTORY OF PRESENT ILLNESS: This is a 78-year-old black female who was referred to me for evaluation of uncontrolled diabetes mellitus. The patient has a longstanding history of diabetes for 20+ years and has multiple complications from diabetes including severe diabetic sensorimotor neuropathy, peripheral vascular disease, hypertension. She came to the hospital with history of abdominal pain, nausea, vomiting, and was found to have pyelonephritis. The patient's daughter tells me that the patient has been on insulin in the past, but recently she was put on metformin. At the time of admission, her creatinine was slightly elevated and the lactic acid levels were 21.5. The patient also has had history of foot ulcers in the past. PHYSICAL EXAMINATION: GENERAL: Today, the patient is alert, awake, little bit apprehensive. VITAL SIGNS: Her heart rate is around 70, blood pressure 130/80 mmHg. HEENT: Essentially unremarkable. Thyroid is palpable. Clinically, she is near euthyroid. CHEST: Bilateral vesicular breathing. She has mild bronchospasm. CARDIAC: First and second heart sound. There is no third or fourth with the systolic grade 2/6. EXTREMITIES: The patient has evidence of diabetic sensory neuropathy in both upper and lower extremities and she has also an old healing ulcer on the left heel. LABORATORY DATA: At the time of admission, her blood sugars have been 289 to 350 range. Her anion gap is normal, but her lactic acid level was significantly elevated at 21.5. BUN and creatinine are 35 and 1.4. CLINICAL IMPRESSION: Diabetes mellitus type 2 with complications, acute pyelonephritis, lactic acidosis, hypertension, and foot ulcer. PLAN: At this time is to discontinue the metformin. Put on subcu insulin. Monitor her blood sugars closely and also start on IV fluids. Thank you again for referring this patient. I will be following this patient with you. MD KAMRYN Rose/MODL /[id number]
--- NOTE | 2018-12-22 18:57 | NUR ---
Nutrition Intervention Note RD Recommendation(s) for Physician: The patient meets criteria for SEVERE protein-calorie malnutrition. -Rec ADA 1600/ GI soft diet as medically appropriate -Rec Glucerna TID to increase protein-calorie intake Plan of Care: RD following, monitoring for tolerance and adequacy, ONS rec Nutrition reason for involvement: Nutrition Risk Trigger MST RD Assessment 12/22 -78yo F, who was admitted for abdominal pain. Visited pt in the room. 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 Pt denied any nausea or vomiting today. LBM 12/21. Pt has missing teeth and likes her foods to be chopped. Pt also with hx of diverticulitis and avoid foods like raw vegetables, seeds, nuts, etc. No swallowing difficulty noted. HbA1c at 9.2%. Pt appeared thin with severe muscle/ fat loss upon NFPA. Pt drinks ~2 Ensure at home daily. Pt was agreeable with RDs recommendation. Communicated rec with EFREM Ayon. Will continue to monitor and follow. Principal Problems/Diagnoses: Diabetes mellitus type 2 with complications, acute pyelonephritis, lactic acidosis, hypertension, and foot ulcer PMH: Hypertension, diverticulitis, diabetes GI: abdomen flat, soft, non-tender Skin: R foot ulcer Labs: (12/22) Glucose 120, Na 133 L, BUN 35 H, Creatinine 1.41 H, HbA1c at 9.2 H Meds: insulin, oscal D, NaCl, protonix, ppecid Ht: 63in Wt: 88.56lb BMI: 15.7kg/m2 IBW: 115lb +/- 10% Malnutrition Evaluation (12/22/2018). The patient meets criteria for SEVERE protein-calorie malnutrition. Energy intake: <75% of estimated energy requirements for >1 month Weight loss: >5% in 1 month (Acute) Fat loss: Severe - hollow look around orbital region, apparent ribs Muscle loss: Severe squaring of shoulder, clavicle protrusion Supporting Evidence: Fluid accumulation: unable to evaluate Functional Status: no changes Nutrition Prescription (Diet Order): ADA 1800 Estimated Nutritional Needs: Calories: 1200 1400kcal/kg/d(30-35kcal/kg/d) Weight used: CBW Protein: 60 80g (1.5-2g/kg/d) Weight used: CBW Diet Adequacy: Not meeting calorie needs, Not meeting protein needs Diet Education Needs Assessment: Diet education indicated, but patient not appropriate for education at this time. Nutrition Care Level: mod Nutrition Diagnosis: Severe malnutrition related to inadequate oral intake as evidenced by <75% of estimated energy requirements for >1 month, >5% in 1 month (Acute) and severe muscle/ fat loss. Goal: Patient will meet 75-100% of estimated needs by follow up Progress: Progressing Interventions: Carbohydrate-modified diet, Commercial beverage Monitoring/Evaluation: Total energy intake, Total protein intake, Modified diet, Liquid supplement, and Weight change Signed: Misty Vazquez, MS, RD, LD
[2018-12-22] MEDS: ATORVASTATIN 40 MG TAB PO SCH (20:42)
[2018-12-22] MEDS ORDERED: INSULIN GLARGINE 100 UNITS/ML VIAL SQ SCH (21:00)
--- NOTE | 2018-12-22 21:30 | NUR ---
pt's daughter called Dr. De La Fuente regarding insulin administration. I called Dr. De La Fuente to discuss the insulin orders since pt BG dropped to 34. Ordered to stop the 7 units of humalog ACHS.
[2018-12-22] MEDS: CEFTRIAXONE SOD 1 GM/NS 50 ML 50 ML IV SCH (23:15)
[2018-12-23] VITALS (9 sets, daily range): BP systolic 146–172; BP diastolic 52–99
[2018-12-23] MEDS: SODIUM CHLORIDE 0.45% 1,000 ML IV SCH (03:22)
[2018-12-23 05:48] LABS: BASOPHILS % 0.2 % (0.0-1.0); EOSINOPHILS # (AUTO) 0.1 (0.0-0.4); EOSINOPHILS % 0.2 % (0.0-6.0); HEMATOCRIT 25.6 % (34.2-44.1); HEMOGLOBIN 8.4 g/dL (12.0-16.0); LYMPHOCYTES # (AUTO) 1.5 (1.0-3.2); LYMPHOCYTES % 6.2 % (18.0-39.1); MEAN CORPUSCULAR HEMOGLOBIN 28.8 pg (28-32); MEAN CORPUSCULAR HGB CONC 32.8 g/dL (31-35); MEAN CORPUSCULAR VOLUME 87.7 fL (81-99); MONOCYTES # (AUTO) 1.3 (0.2-0.8); MONOCYTES % 5.3 % (4.4-11.3); NEUTROPHILS # (AUTO) 20.6 (2.1-6.9); NEUTROPHILS % 85.5 % (38.7-80.0); PLATELET COUNT 387 x10e3/uL (140-360); RED BLOOD COUNT 2.92 x10e6/uL (3.6-5.1); RED CELL DISTRIBUTION WIDTH 13.4 % (11.7-14.4)
[2018-12-23 06:08] LABS: ALANINE AMINOTRANSFERASE 52 IU/L (0-55); ALBUMIN 2.7 g/dL (3.5-5.0); ALBUMIN/GLOBULIN RATIO 0.9 (0.8-2.0); ALKALINE PHOSPHATASE 116 IU/L (40-150); ANION GAP 14.3 mmol/L (8-16); BLOOD UREA NITROGEN 22 mg/dL (7-26); BUN/CREATININE RATIO 26 (6-25); CALCIUM 9.1 mg/dL (8.4-10.2); CARBON DIOXIDE 23 mmol/L (22-29); CHLORIDE 100 mmol/L (98-107); CREATININE, SERUM 0.86 mg/dL (0.57-1.11); EST GLOMERULAR FILTRATION RATE > 60 ML/MIN (60-); POTASSIUM 4.3 mmol/L (3.5-5.1); SODIUM 133 mmol/L (136-145)
[2018-12-23 06:53] LABS: GLUCOSE 56 mg/dL (74-118)
[2018-12-23] MEDS: INSULIN LISPRO 100 UNIT/1 ML 3ML VIAL SQ SCH ×4 (07:30→21:00)
[2018-12-23] MEDS: PANTOPRAZOLE SOD 40 MG TABEC PO SCH (08:00)
[2018-12-23 08:31] LABS: ANISOCYTOSIS MODERATE; BAND NEUTROPHILS % (MANUAL) 10 %; BURR CELLS MODERATE; ELLIPTOCYTE, RBC MODERATE; LYMPHOCYTES % (MANUAL) 3 % (19-48); MONOCYTES % (MANUAL) 9 % (3.4-9.0); NEUTROPHILS % (MANUAL) 75 % (40-74); PLATELET ESTIMATE SLIGHTLY INCREASED; PLATELET MORPHOLOGY COMMENT NORMAL; POIKILOCYTOSIS MODERATE; RBC MORPHOLOGY COMMENT ABNORMAL
[2018-12-23] MEDS: FAMOTIDINE 20 MG TAB PO SCH (09:06)
[2018-12-23] MEDS: ASPIRIN 81 MG CHEW TAB PO SCH (09:06)
[2018-12-23] MEDS: OYST-CAL-D 500MG TABLET PO SCH ×2 (09:06→17:38)
[2018-12-23] MEDS: METOPROLOL SUCCINATE 50 MG TAB XL PO SCH (09:06)
--- NOTE | 2018-12-23 12:30 | NUR ---
Patient received from ICU, patient transferred via wheel chair, able to stand with 1 person assist, per handoff report patient med-surge no telemetry. She is alert and oriented x3, verbalizing needs, oriented to room and use of call light. Bed in low position, breaks on, belongings and call light within reach instructed to use call light when needing assistance. Patient verbalized understanding.
--- NOTE | 2018-12-23 12:35 | NUR ---
SPOKE WITH PATIENT AND CALLED DAUGHTER OKSANA ABOUT CHOICE FOR SNF, DAUGHTER IS GOING TO GO LOOK AT [facility] AND LEFT A SENIOR RESOURCE GUIDE IN ROOM TO HAVE OTHER OPTIONS. WILL CALL AND LET KNOW WHEN MAKE DECISIONS.
--- NOTE | 2018-12-23 12:38 | NUR ---
TRANSFERRED PT TO ROOM 197 IN STABLE CONDITION RN TO RESUME CARE NOTIFIED DAUGHTER OF MOVE
[2018-12-23] MEDS: ATORVASTATIN 40 MG TAB PO SCH (21:13)
[2018-12-23] MEDS: CEFTRIAXONE SOD 1 GM/NS 50 ML 50 ML IV SCH (23:21)
[2018-12-24] VITALS (8 sets, daily range): BP systolic 134–165; BP diastolic 56–70
[2018-12-24] MEDS: INSULIN LISPRO 100 UNIT/1 ML 3ML VIAL SQ SCH ×4 (07:28→21:07)
[2018-12-24] MEDS: OYST-CAL-D 500MG TABLET PO SCH ×2 (08:58→16:41)
[2018-12-24] MEDS: FAMOTIDINE 20 MG TAB PO SCH (08:58)
[2018-12-24] MEDS: ASPIRIN 81 MG CHEW TAB PO SCH (08:58)
[2018-12-24] MEDS: METOPROLOL SUCCINATE 50 MG TAB XL PO SCH (08:58)
[2018-12-24] MEDS: PANTOPRAZOLE SOD 40 MG TABEC PO SCH (08:58)
[2018-12-24] MEDS ORDERED: ONDANSETRON HCL 4 MG ORAL DISINTEGRATING TAB PO PRN (09:30)
--- NOTE | 2018-12-24 09:51 | NUR ---
SPOKE WITH DAUGHTER OKSANA, SHE STATES SHE REMEMBERED THAT 2 FAMILY MEMBERS AT [facility] SO SHE DOESNT WANT TO GO THERE, SHE STATES THE PT TWIN SISTER JUST PASSED AND THE IS TOMORROW BUT SHE WILL GO LOOK AND LET US KNOW.
--- NOTE | 2018-12-24 11:27 | NUR ---
pt is refusing insulin. is aware of BS numbers
--- NOTE | 2018-12-24 13:06 | NUR ---
dr jonas gong for consult
[2018-12-24] MEDS: SITAGLIPTIN 100 MG TAB PO SCH (16:41)
[2018-12-24] MEDS: ATORVASTATIN 40 MG TAB PO SCH (21:00)
[2018-12-24] MEDS ORDERED: INSULIN GLARGINE 100 UNITS/ML VIAL SQ SCH (21:00)
[2018-12-24] MEDS ORDERED: SODIUM CHLORIDE 0.9% 250ML 250 ML ONE (21:21)
[2018-12-24] MEDS: CEFTRIAXONE SOD 1 GM/NS 50 ML 50 ML IV SCH (21:25)
[2018-12-25] VITALS (7 sets, daily range): BP systolic 140–170; BP diastolic 55–66
[2018-12-25 05:26] LABS: BASOPHILS # (AUTO) 0.1 (0.0-0.1); BASOPHILS % 0.4 % (0.0-1.0); EOSINOPHILS # (AUTO) 0.1 (0.0-0.4); EOSINOPHILS % 0.4 % (0.0-6.0); HEMATOCRIT 23.4 % (34.2-44.1); HEMOGLOBIN 7.7 g/dL (12.0-16.0); LYMPHOCYTES # (AUTO) 1.7 (1.0-3.2); LYMPHOCYTES % 11.2 % (18.0-39.1); MEAN CORPUSCULAR HEMOGLOBIN 28.3 pg (28-32); MEAN CORPUSCULAR HGB CONC 32.9 g/dL (31-35); MONOCYTES # (AUTO) 1.1 (0.2-0.8); MONOCYTES % 7.3 % (4.4-11.3); NEUTROPHILS # (AUTO) 11.7 (2.1-6.9); NEUTROPHILS % 78.4 % (38.7-80.0); PLATELET COUNT 400 x10e3/uL (140-360); RED BLOOD COUNT 2.72 x10e6/uL (3.6-5.1); RED CELL DISTRIBUTION WIDTH 13.2 % (11.7-14.4)
[2018-12-25 05:50] LABS: ANION GAP 12.3 mmol/L (8-16); BLOOD UREA NITROGEN 16 mg/dL (7-26); BUN/CREATININE RATIO 19 (6-25); CALCIUM 8.6 mg/dL (8.4-10.2); CARBON DIOXIDE 26 mmol/L (22-29); CHLORIDE 102 mmol/L (98-107); CREATININE, SERUM 0.85 mg/dL (0.57-1.11); EST GLOMERULAR FILTRATION RATE > 60 ML/MIN (60-); GLUCOSE 74 mg/dL (74-118); POTASSIUM 4.3 mmol/L (3.5-5.1); SODIUM 136 mmol/L (136-145)
[2018-12-25] MEDS: INSULIN LISPRO 100 UNIT/1 ML 3ML VIAL SQ SCH ×4 (07:30→21:00)
[2018-12-25] MEDS: PANTOPRAZOLE SOD 40 MG TABEC PO SCH (07:44)
[2018-12-25] MEDS: ASPIRIN 81 MG CHEW TAB PO SCH (08:16)
[2018-12-25] MEDS: FAMOTIDINE 20 MG TAB PO SCH (08:16)
[2018-12-25] MEDS: OYST-CAL-D 500MG TABLET PO SCH ×2 (08:16→17:02)
[2018-12-25] MEDS: SITAGLIPTIN 100 MG TAB PO SCH (08:16)
[2018-12-25] MEDS: METOPROLOL SUCCINATE 50 MG TAB XL PO SCH (08:17)
[2018-12-25 09:06] LABS: LYMPHOCYTES % (MANUAL) 12 % (19-48); MONOCYTES % (MANUAL) 8 % (3.4-9.0); NEUTROPHILS % (MANUAL) 80 % (40-74); PLATELET ESTIMATE ADEQUATE; RBC MORPHOLOGY COMMENT NORMAL
--- NOTE | 2018-12-25 17:13 | Progress Note ---
DATE: SUBJECTIVE: The patient is seen and examined. Chart reviewed. Events reviewed. The patient is currently alert, oriented, lying in bed comfortably. No complaints. MEDICATION LIST: She is on metoprolol-XL, Januvia, Pepcid, Os-Nick D, Protonix, ceftriaxone, and Lipitor. LABORATORY DATA: White count came down to 14.94, hemoglobin 7.7, hematocrit 23. Her sodium 136, potassium 4.3, creatinine 0.85. Blood cultures, no growth in 72 hours. PHYSICAL EXAMINATION: VITAL SIGNS: Stable. Afebrile. Temperature 97.9, heart rate of 84, respirations 18, blood pressure 157/66. GENERAL: She is currently alert, oriented, does not seem in acute distress. HEENT: She is not icteric. NECK: Supple. CHEST: Clear. HEART: S1-S2. No murmurs. ABDOMEN: Soft. Bowel sounds present, tenderness. EXTREMITIES: No edema. SKIN: No rash. REVIEW OF SYSTEMS: HEENT: Negative. PULMONARY: Negative. CARDIAC: Negative. : Negative. IMPRESSION: Sepsis present on admission, improving source probably pyelonephritis. CAT scan showed renal edema with perinephric inflammation, suggestive of pyelonephritis on the right. However, her blood cultures are negative and no urine cultures unfortunately, but she responded to Rocephin and she continued to improve and discharged with oral Keflex. Her white count is normal. Discussed with the nursing team. MD ZUHAIR Borjas/PROSPER /[id number]
--- NOTE | 2018-12-25 17:18 | Progress Note ---
DATE: ADDENDUM: The patient is also with anemia, hemoglobin 7.7, and discussed with Hematology/Oncology. MD ZUHAIR Borjas/PROSPER /[id number]
--- NOTE | 2018-12-25 19:00 | NUR ---
Handoff report to oncoming nurse, patient in bed verbalizing needs using call light appropriately.
[2018-12-25] MEDS ORDERED: HYDRALAZINE HCL 20 MG/ML VIAL IV STA (20:20)
[2018-12-25] MEDS ORDERED: ACETAMINOPHEN 325 MG TAB PO PRN (20:30)
[2018-12-25] MEDS ORDERED: HYDRALAZINE HCL 20 MG/ML VIAL IV PRN (20:30)
[2018-12-25] MEDS ORDERED: INSULIN GLARGINE 100 UNITS/ML VIAL SQ SCH (21:00)
[2018-12-25] MEDS: ATORVASTATIN 40 MG TAB PO SCH (21:01)
[2018-12-25] MEDS: CEFTRIAXONE SOD 1 GM/NS 50 ML 50 ML IV SCH (22:44)
[2018-12-26] VITALS (9 sets, daily range): BP systolic 127–193; BP diastolic 45–71
[2018-12-26] MEDS: INSULIN LISPRO 100 UNIT/1 ML 3ML VIAL SQ SCH ×4 (07:30→23:35)
[2018-12-26] MEDS: PANTOPRAZOLE SOD 40 MG TABEC PO SCH (07:51)
[2018-12-26] MEDS: ASPIRIN 81 MG CHEW TAB PO SCH (08:30)
[2018-12-26] MEDS: FAMOTIDINE 20 MG TAB PO SCH (08:30)
[2018-12-26] MEDS: OYST-CAL-D 500MG TABLET PO SCH ×2 (08:30→16:07)
[2018-12-26] MEDS: SITAGLIPTIN 100 MG TAB PO SCH (08:30)
[2018-12-26] MEDS: METOPROLOL SUCCINATE 50 MG TAB XL PO SCH (08:30)
[2018-12-26] MEDS: HYDRALAZINE HCL 25 MG TAB PO SCH (16:07)
--- NOTE | 2018-12-26 16:10 | NUR ---
BP 193/70 HR 70, hydralazine 25 mg po given per MD order, will continue to monitor
--- NOTE | 2018-12-26 16:54 | NUR ---
blood sugar 313, family refuses sliding scale insulin, dr alvarez notified, will continue to monitor
--- NOTE | 2018-12-26 17:56 | NUR ---
informed dr ji that per family request they do not want Dr. De La Fuente on consult due to patients daughters feelings about current treatment plans and verbalizations that MD is rude and has bad bedside manners and is not understanding of her mothers past reactions to short acting insulin, house supp and charge nurse notified of family and MD conversation, orders received from Dr. Ji to cancel consult at this time and continue current orders
[2018-12-26] MEDS: ATORVASTATIN 40 MG TAB PO SCH (21:33)
[2018-12-26] MEDS: CEFTRIAXONE SOD 1 GM/NS 50 ML 50 ML IV SCH (23:36)
[2018-12-27] VITALS (7 sets, daily range): BP systolic 125–179; BP diastolic 59–79
[2018-12-27 05:41] LABS: BASOPHILS % 0.3 % (0.0-1.0); EOSINOPHILS # (AUTO) 0.1 (0.0-0.4); EOSINOPHILS % 0.6 % (0.0-6.0); HEMATOCRIT 23.6 % (34.2-44.1); HEMOGLOBIN 7.6 g/dL (12.0-16.0); LYMPHOCYTES # (AUTO) 1.5 (1.0-3.2); MEAN CORPUSCULAR HEMOGLOBIN 28.4 pg (28-32); MEAN CORPUSCULAR HGB CONC 32.2 g/dL (31-35); MEAN CORPUSCULAR VOLUME 88.1 fL (81-99); MONOCYTES # (AUTO) 0.9 (0.2-0.8); MONOCYTES % 6.9 % (4.4-11.3); NEUTROPHILS # (AUTO) 9.7 (2.1-6.9); NEUTROPHILS % 77.2 % (38.7-80.0); PLATELET COUNT 457 x10e3/uL (140-360); RED BLOOD COUNT 2.68 x10e6/uL (3.6-5.1); RED CELL DISTRIBUTION WIDTH 13.4 % (11.7-14.4)
[2018-12-27 06:02] LABS: ANION GAP 10.8 mmol/L (8-16); BLOOD UREA NITROGEN 18 mg/dL (7-26); BUN/CREATININE RATIO 19 (6-25); CALCIUM 9.5 mg/dL (8.4-10.2); CARBON DIOXIDE 28 mmol/L (22-29); CHLORIDE 101 mmol/L (98-107); CREATININE, SERUM 0.96 mg/dL (0.57-1.11); EST GLOMERULAR FILTRATION RATE > 60 ML/MIN (60-); GLUCOSE 272 mg/dL (74-118); POTASSIUM 4.8 mmol/L (3.5-5.1); SODIUM 135 mmol/L (136-145)
--- NOTE | 2018-12-27 07:00 | NUR ---
Report given to oncoming nurse [place], walking round done.
--- NOTE | 2018-12-27 07:00 | NUR ---
Pt received resting in bed during walking rounds. Alert and oriented x4. Oriented to staff and surroundings. Encouraged to press call sarkar if help needed. Pt verbalized understanding of teaching. Call sarkar within reach. Will monitor
[2018-12-27] MEDS: INSULIN LISPRO 100 UNIT/1 ML 3ML VIAL SQ SCH ×4 (07:30→20:47)
[2018-12-27] MEDS: INSULIN GLARGINE 100 UNITS/ML VIAL SQ SCH (08:15)
[2018-12-27] MEDS: PANTOPRAZOLE SOD 40 MG TABEC PO SCH (08:16)
[2018-12-27] MEDS: SITAGLIPTIN 100 MG TAB PO SCH (08:16)
[2018-12-27] MEDS: ASPIRIN 81 MG CHEW TAB PO SCH (08:16)
[2018-12-27] MEDS: FAMOTIDINE 20 MG TAB PO SCH (08:16)
[2018-12-27] MEDS: HYDRALAZINE HCL 25 MG TAB PO SCH ×2 (08:16→17:05)
[2018-12-27] MEDS: OYST-CAL-D 500MG TABLET PO SCH ×2 (08:16→17:05)
[2018-12-27] MEDS: METOPROLOL SUCCINATE 50 MG TAB XL PO SCH (08:16)
--- NOTE | 2018-12-27 08:16 | NUR ---
All meds given as ordered with the exception of sliding scale which family refused. Will monitor
[2018-12-27 09:09] LABS: ANISOCYTOSIS SLIGHT; LYMPHOCYTES % (MANUAL) 16 % (19-48); MONOCYTES % (MANUAL) 6 % (3.4-9.0); NEUTROPHILS % (MANUAL) 78 % (40-74); POIKILOCYTOSIS SLIGHT
[2018-12-27 09:10] LABS: OVALOCYTES FEW; PLATELET ESTIMATE MODERATELY INCREASED; PLATELET MORPHOLOGY COMMENT NORMAL; RBC MORPHOLOGY COMMENT NORMAL; SCHISTOCYTES RARE
--- NOTE | 2018-12-27 09:32 | NUR ---
Pt's daughter called for the fourth time to discuss plan of care with Dr. Ji. Daughter did not roller picker. Prescriptions left in chart. Will monitor
[2018-12-27] MEDS ORDERED: SODIUM CHLORIDE 0.9% 250ML 250 ML IV ONE (10:00)
[2018-12-27] MEDS ORDERED: FUROSEMIDE INJ 10 MG/ML 2 ML VIAL IV PRN (10:00)
--- NOTE | 2018-12-27 10:08 | NUR ---
One unit of PRBC ordered by Dr. Flores. Pt can be discharged post transfusion. Will follow up
[2018-12-27] MEDS ORDERED: LACTULOSE SYRUP 20 GM/30 ML UDC PO ONE (11:30)
--- NOTE | 2018-12-27 12:02 | NUR ---
EDUCATED ABOUT IMM, SIGNED, FILED IN CHART, WITH COPY LEFT WITH FAMILY AT BEDSIDE.
--- NOTE | 2018-12-27 12:59 | NUR ---
ORDERS FOR HOME HEALTH CARE PLAN DC HOME TOMORROW PT ALREADY HAS [facility] AND WISHES TO CONTINUE WITH THEM PHONE [phone] FAX [phone] FAXED CLINICALS TO ABOVE NUMBER; CONFIRMATION REC'D CHOICE LETTER SIGNED AND ON CHART COPY TO PT'S DTR
--- NOTE | 2018-12-27 13:10 | NUR ---
Pt with hgb 7.6, and one unit of blood transfusion ordered. Blood verified by two nurses. Blood unit number [id number]. Educated pt and family regarding s/s to report. Remained in the room for the first 15 minutes. No untoward reaction noted. Will monitor
--- NOTE | 2018-12-27 13:25 | NUR ---
No untoward reaction noted during first 30 minutes of blood transfusion. Will follow up
--- NOTE | 2018-12-27 13:59 | NUR ---
Nutrition Intervention Note RD Recommendation(s) for Physician: The patient meets criteria for SEVERE protein-calorie malnutrition. -Rec ADA 1600/ GI soft diet as medically appropriate -Continue Glucerna TID to increase protein-calorie intake -BG and insulin management per MD Plan of Care: RD following, monitoring for tolerance and adequacy, ONS rec Nutrition reason for involvement: follow up RD Assessment 12/27: Pt seen for follow up. Pt reports eating "okay", noted 25-50% meal intake per chart. Pt reports drinking 2 Glucerna shakes per day. Pt denies any abdominal pain or GI distress. Pt with no questions or concerns, no family present at time of visit. Labs and meds reviewed, BG remains elevated. Pt discussed during am rounds, pending discharge with home health and PT today after transfusion. Will monitor and continue to follow. 12/22 -78yo F, who was admitted for abdominal pain. Visited pt in the room. Pt reported eating like usual at home PERCH MENDER but has lost over 20lbs within a month. Pt denied any nausea or vomiting today. LBM 12/21. Pt has missing teeth and likes her foods to be chopped. Pt also with hx of diverticulitis and avoid foods like raw vegetables, seeds, nuts, etc. No swallowing difficulty noted. HbA1c at 9.2%. Pt appeared thin with severe muscle/ fat loss upon NFPA. Pt drinks ~2 Ensure at home daily. Pt was agreeable with RDs recommendation. Communicated rec with EFREM Ayon. Will continue to monitor and follow. Principal Problems/Diagnoses: Diabetes mellitus type 2 with complications, acute pyelonephritis, lactic acidosis, hypertension, and foot ulcer PMH: Hypertension, diverticulitis, diabetes GI: abdomen flat, soft, non-tender Skin: R foot ulcer Labs: 12/27: Na 135, Gluc 272 (12/22) Glucose 120, Na 133 L, BUN 35 H, Creatinine 1.41 H, HbA1c at 9.2 H Meds: reviewed 12/27 insulin, oscal D, NaCl, protonix, pecid Ht: 63in Wt: 88.56lb BMI: 15.7kg/m2 IBW: 115lb +/- 10% Malnutrition Evaluation (12/22/2018). The patient meets criteria for SEVERE protein-calorie malnutrition. Energy intake: <75% of estimated energy requirements for >1 month Weight loss: >5% in 1 month (Acute) Fat loss: Severe - hollow look around orbital region, apparent ribs Muscle loss: Severe squaring of shoulder, clavicle protrusion Supporting Evidence: Fluid accumulation: unable to evaluate Functional Status: no changes Nutrition Prescription (Diet Order): ADA 1800 Estimated Nutritional Needs: Calories: 1200 1400kcal/kg/d(30-35kcal/kg/d) Weight used: CBW Protein: 60 80g (1.5-2g/kg/d) Weight used: CBW Diet Adequacy: Not meeting calorie needs, Not meeting protein needs Diet Education Needs Assessment: Diet education indicated, but patient not appropriate for education at this time. Nutrition Care Level: mod Nutrition Diagnosis: Severe malnutrition related to inadequate oral intake as evidenced by <75% of estimated energy requirements for >1 month, >5% in 1 month (Acute) and severe muscle/ fat loss. Goal: Patient will meet 75-100% of estimated needs by follow up Progress: Progressing Interventions: Carbohydrate-modified diet, Commercial beverage Monitoring/Evaluation: Total energy intake, Total protein intake, Modified diet, Liquid supplement, and Weight change Signed: Barbara Arizmendi RD, LD, CNSC
--- NOTE | 2018-12-27 15:55 | NUR ---
Unit of blood completed. Emotional support given. Fall precautions maintained. Will monitor
--- NOTE | 2018-12-27 16:49 | Consultation ---
DATE OF CONSULTATION: 12/25/2018 Consultation to Lashell Galarza M.D. HISTORY OF PRESENT ILLNESS: Park Hutotn is a 78-year-old white female, referred to me for evaluation of anemia. No history of hematochezia, melena, hematuria, hematemesis, or hemoptysis. The patient was thought to have "chronic myelogenous leukemia," subsequently referred for ruling out chronic myelogenous leukemia. The patient has been admitted for sepsis, pyelonephritis. SOCIAL HISTORY: Noncontributory. FAMILY HISTORY: Noncontributory. ALLERGIES: REPORTED NONE. MEDICATIONS: At this time: 1. Ceftriaxone. 2. Lipitor. 3. Calcium. 4. Pepcid. 5. Metoprolol. 6. Protonix. 7. Insulin. 8. Ondansetron. 9. Sitagliptin. REVIEW OF SYSTEMS: HEENT: Normal. CARDIAC: History of hypertension. RESPIRATORY: Normal. GI: Normal. : Normal. MUSCULOSKELETAL: Normal. SKIN AND BREASTS: Normal. NEURO/ENDOCRINE: History of diabetes mellitus. PHYSICAL EXAMINATION: GENERAL: A very cachectic female, anemic. NECK: No palpable adenopathy. HEART: Within normal limits. LUNGS: Clear. BREASTS: Deferred at request. ABDOMEN: Soft. RECTAL AND VAGINAL: Deferred at request. CENTRAL NERVOUS SYSTEM: Essentially normal. EXTREMITIES: Essentially normal. LABORATORY DATA: Shows a hemoglobin of 7.7, hematocrit of 23.4. Indices are essentially normal. White count of 14,900, platelets of 400, underlying differential shows 78.4 neutrophils, 12 lymphocytes, 8 monocytes. No immature forms are seen as myelocytes, metamyelocytes, promyelocytes, or blasts. Sodium of 136, potassium 4.3, chloride 72, CO2 26, BUN 16, creatinine 0.8, glucose 74, bilirubin 0.5, SGOT 58, SGPT 52, alkaline phosphatase 116. CAT scan of the abdomen shows possibility of pyelonephritis and chronic cystitis. IMPRESSION: 1. Anemia of chronic disease. 2. Leukemoid reaction. 3. Lactic acidosis. 4. Uncontrolled diabetes mellitus. 5. Chronic renal failure. 6. Hypoproteinemia. 7. Hypoalbuminemia. 8. Pyelonephritis. 9. Chronic cystitis. PLAN, COMMENTS, AND SUGGESTIONS: Continue the antibiotics. This is not chronic myelogenous leukemia. This is a leukemoid reaction. The patient has done remarkably well with her creatinine with hydration. The creatinine on admission was 1.41 with a BUN of 35. This possibly was prerenal. The hemoglobin on admission was also slightly high at 8.4. White count was [address], which has come down to 14,900. Anemia of chronic disease. There are 4 different causes being one chronic renal failure, however, she does not qualify for chronic renal failure. She has recovered completely. Hypothyroidism, however, her thyroid functions have been normal. Rheumatoid arthritis, clinically, she does not have rheumatoid arthritis or an underlying malignancy is very possible, however, of academic interest in a 78-year-old, bed confined with extremely poor performance status. However, if the family wants this to be done, the patient could have extensive workup including a bone marrow, CAT scan of the chest, tumor markers. Thank you very much for allowing me to participate in management of this patient. MD CHICHI West/AMNAL /[id number] cc: Bianca Ji MD
--- NOTE | 2018-12-27 21:00 | NUR ---
Bedtime snack given to patient. She denies any discomfort at this time. Call sarkar within reach.
[2018-12-27] MEDS: ATORVASTATIN 40 MG TAB PO SCH (21:23)
[2018-12-27] MEDS: CEFTRIAXONE SOD 1 GM/NS 50 ML 50 ML IV SCH (23:24)
--- NOTE | 2018-12-28 04:00 | NUR ---
Patient assisted to bathroom, back to bed with walker and standby assist. AM care and cup of coffee given per request. Call sarkar within reach.
[2018-12-28 04:31] VITALS: BP 154/67
[2018-12-28 05:29] LABS: BASOPHILS # (AUTO) 0.1 (0.0-0.1); BASOPHILS % 0.4 % (0.0-1.0); EOSINOPHILS # (AUTO) 0.1 (0.0-0.4); EOSINOPHILS % 0.8 % (0.0-6.0); HEMATOCRIT 31.3 % (34.2-44.1); HEMOGLOBIN 10.4 g/dL (12.0-16.0); LYMPHOCYTES # (AUTO) 2.2 (1.0-3.2); LYMPHOCYTES % 13.1 % (18.0-39.1); MEAN CORPUSCULAR HEMOGLOBIN 28.8 pg (28-32); MEAN CORPUSCULAR HGB CONC 33.2 g/dL (31-35); MEAN CORPUSCULAR VOLUME 86.7 fL (81-99); MONOCYTES # (AUTO) 1.2 (0.2-0.8); MONOCYTES % 7.5 % (4.4-11.3); NEUTROPHILS # (AUTO) 12.5 (2.1-6.9); NEUTROPHILS % 75.4 % (38.7-80.0); PLATELET COUNT 454 x10e3/uL (140-360); RED BLOOD COUNT 3.61 x10e6/uL (3.6-5.1); RED CELL DISTRIBUTION WIDTH 13.6 % (11.7-14.4)
[2018-12-28 05:44] LABS: BLOOD UREA NITROGEN 18 mg/dL (7-26); BUN/CREATININE RATIO 19 (6-25); CALCIUM 9.8 mg/dL (8.4-10.2); CARBON DIOXIDE 27 mmol/L (22-29); CHLORIDE 100 mmol/L (98-107); CREATININE, SERUM 0.95 mg/dL (0.57-1.11); EST GLOMERULAR FILTRATION RATE > 60 ML/MIN (60-); GLUCOSE 83 mg/dL (74-118); SODIUM 136 mmol/L (136-145)
--- NOTE | 2018-12-28 07:07 | NUR ---
Walking rounds done and report given. Call sarkar within reach.
[2018-12-28 07:08] LABS: LYMPHOCYTES % (MANUAL) 14 % (19-48); MONOCYTES % (MANUAL) 8 % (3.4-9.0); NEUTROPHILS % (MANUAL) 78 % (40-74); PLATELET ESTIMATE MODERATELY INCREASED; RBC MORPHOLOGY COMMENT NORMAL
[2018-12-28 07:30] VITALS: BP 158/62
[2018-12-28] MEDS: INSULIN LISPRO 100 UNIT/1 ML 3ML VIAL SQ SCH ×2 (07:30→11:30)
[2018-12-28] MEDS: PANTOPRAZOLE SOD 40 MG TABEC PO SCH (08:56)
[2018-12-28] MEDS: ASPIRIN 81 MG CHEW TAB PO SCH (08:57)
[2018-12-28] MEDS: SITAGLIPTIN 100 MG TAB PO SCH (08:57)
[2018-12-28] MEDS: OYST-CAL-D 500MG TABLET PO SCH (08:57)
[2018-12-28] MEDS: FAMOTIDINE 20 MG TAB PO SCH (08:57)
[2018-12-28] MEDS: METOPROLOL SUCCINATE 50 MG TAB XL PO SCH (08:58)
[2018-12-28] MEDS: HYDRALAZINE HCL 25 MG TAB PO SCH (08:58)
[2018-12-28 09:09] VITALS: BP 158/62
[2018-12-28] MEDS: INSULIN GLARGINE 100 UNITS/ML VIAL SQ SCH (09:11)
--- NOTE | 2018-12-28 12:40 | NUR ---
Patient discharged home with home health. Escorted patient in wheel chair to meet her daughter in front of hospital.
--- NOTE | 2018-12-29 10:05 | Discharge Summary ---
FINAL DIAGNOSES: 1. Sepsis. 2. Protein calorie malnutrition. 3. Pyelonephritis. 4. Anemia. 5. Anemia of chronic disease. 6. Acute kidney injury that resolved with IV hydration. 7. Diabetes mellitus. 8. History of hypertension. ADMISSION HISTORY AND HOSPITAL COURSE: Ms. Hutton is a 78-year-old female. She presented to the emergency room with vomiting and found to have UTI, pyelonephritis on CAT scan of the abdomen. ID was consulted. The patient was started on IV antibiotics. She was dehydrated. IV hydration was started and renal failure resolved. She had anemia. Dr. Flores was consulted and he recommended 1 unit of blood transfusion. The patient has improved. The patient will be discharged home to follow up with primary care physician. Discharge medication list reviewed. She was started on Januvia by Dr. De La Fuente. I have given the prescription for that. She will continue her home medications. Blood pressure was on the higher side and I started her on hydralazine 25 b.i.d. along with the metoprolol. I spoke to the daughter in detail over the phone and in person. I spoke to the daughter in detail about the medications and discharge planning and she will arrange home health for her. Physical therapy also evaluated the patient while she was in the hospital. TIME SPENT: 50 minutes. MD KEIRA Shane/PROSPER /[id number]
== END 2018-12-28 12:25 | disposition home or self-care (01) | DRG 871 ==
LOC: FSED 21:50 → ERHOLD 12-22 00:36 → ICU 12-22 01:21 → IMCU 12-23 12:52
PROVIDERS: ADMIT Internal Medicine; ATTEND Internal Medicine
PROC: 30233N1 Transfusion of Nonautologous Red Blood Cells into Peripheral Vein, Percutaneous Approach (ICD-10-PCS; principal; 2018-12-22)
DX: A41.9 Sepsis, unspecified organism (principal); E43 Unspecified severe protein-calorie malnutrition; N10 Acute pyelonephritis; E87.2 Acidosis; N17.9 Acute kidney failure, unspecified; Z68.1 Body mass index [BMI] 19.9 or less, adult; L97.429 Non-pressure chronic ulcer of left heel and midfoot with unspecified severity; E11.9 Type 2 diabetes mellitus without complications; I10 Essential (primary) hypertension; I12.9 Hypertensive chronic kidney disease with stage 1 through stage 4 chronic kidney disease, or unspecified chronic kidney disease; E11.22 Type 2 diabetes mellitus with diabetic chronic kidney disease; N18.9 Chronic kidney disease, unspecified; D63.8 Anemia in other chronic diseases classified elsewhere; E86.0 Dehydration; D72.823 Leukemoid reaction; E11.65 Type 2 diabetes mellitus with hyperglycemia; E77.8 Other disorders of glycoprotein metabolism; E88.09 Other disorders of plasma-protein metabolism, not elsewhere classified; N30.20 Other chronic cystitis without hematuria; E11.621 Type 2 diabetes mellitus with foot ulcer; Z79.4 Long term (current) use of insulin
CPT/HCPCS: 36415; 71046; 74176; 80048; 80053; 81003; 82270; 82948; 83036; 83605; 84439; 84443; 85025; 86850; 86900; 86920; 87040; 93005; 97139; 99284; J0360; J0696; J1815; J1817; J1940; J2405; J7030; J7040; J7050; J7799; P9016

== ENCOUNTER 2019-02-21 14:22 | Emergency (ER) | payer MEDICARE ==
[~2019-02-21] VITALS: Ht 160 cm; Wt 38.6 kg
[~2019-02-21 14:22] MED LIST: ALBUTEROL0.63 MG/3; ASPIR 8181 MG; ATORVASTATIN CA20 MG PO; CALCIUM CARBON500 MG PO; FAMOTIDINE20 MG PO; GERITOL COMPLE1 EACH; METFORMIN HCL500 M2 PO; METOPROLOL SUCC50 MG PO; PANTOPRAZOLE SO40 MG PO
--- NOTE | 2019-02-21 15:30 | NUR ---
RECTAL EXAM DONE BY DR WITH NURSE AT BEDSIDE
--- NOTE | 2019-02-21 16:55 | Diagnostic Imaging Report ---
Exam: KUB - 2 views Indication: Abdominal Pain Comparison: None Findings: Nonobstructive bowel gas pattern. No free air. No abnormal calcifications. Mild degenerative changes of the visualized spine. Old posterior medical findings of the right pelvis. Diffuse atherosclerotic arterial calcifications. The partially visualized lung bases appear clear. Impression: Nonobstructive bowel gas pattern. No free air. Signed by: Marina Sims MD on 02/21/2019 4:52 PM
[2019-02-21 17:13] VITALS: BP 173/73
== END 2019-02-21 17:18 | disposition home or self-care (01) ==
LOC: FSED 14:22 → EDBD 14:22 → FSED 17:18
DX: R30.0 Dysuria (principal); K59.00 Constipation, unspecified; E11.9 Type 2 diabetes mellitus without complications
CPT/HCPCS: 74018; 81003; 99283